=== PATIENT | female | born 1945 | race Caucasian/White ===

== ENCOUNTER 2016-09-11 13:16 | Outpatient (CLI) | payer OTHER ==
--- NOTE | 2016-09-11 15:43 | DIAGNOSTIC IMAGING REPORT ---
PROCEDURE: US PARACENTESIS INDICATION: Ascites. Ovarian carcinoma. Distention. COMPARISON: None. TECHNIQUE: Informed consent was obtained and the patient was advised of the usual risks and complications including infection, bleeding and allergy. Supine position. PROCEDURE/FINDINGS: Following sterile preparation and 1% lidocaine local anesthetic, ultrasound guidance was utilized to place a 16-gauge angiocatheter in right lateral abdomen. 5150 ml of serous fluid was aspirated. The patient tolerated the procedure well and was discharged home to the care of her , in satisfactory condition, with instructions to call for any untoward symptoms. IMPRESSION: 1. Successful ultrasound-guided therapeutic paracentesis (5150 ml of serous fluid).
== END 2016-09-11 23:00 ==
LOC: US SRH 13:16
PROC: 0W9G3ZX Drainage of Peritoneal Cavity, Percutaneous Approach, Diagnostic (ICD-10-PCS; principal; 2016-09-11)
PROC: BW40ZZZ Ultrasonography of Abdomen (ICD-10-PCS; 2016-09-11)
DX: R18.8 Other ascites (principal)
CPT/HCPCS: 82445; 83704